=== PATIENT | male | born 1975 | race Caucasian/White ===

== ENCOUNTER 2021-04-23 13:47 | Emergency (ER) | payer BC, SELFPAY ==
--- NOTE | 2021-04-23 13:52 | ED.LOWEXIN ---
HPI - Extremity Injury (Lower) General Chief Complaint: Extremity Injury, Lower Stated Complaint: RIGHT KNEE PAIN Time Seen by Provider: 04/23/21 13:52 Source: patient and RN notes reviewed History of Present Illness HPI Narrative: Patient is a 45-year-old male who presents the urgent care with his significant other with complaints of right knee pain and swelling. Patient states that he was climbing up in a truck bed on Saturday getting ready to go camping and heard a pop in the right knee . Patient states that he is rested all weekend used ice and Aleve for the pain. Denies of hitting the knee. No other acute complaints. No acute distress noted. Patient aware of the plan of care. Some parts of this dictation were generated by voice recognition software and may contain typographical and/or grammatical inaccuracies. Related Data Allergies Allergy/AdvReac Type Severity Reaction Status Date / Time No Known Allergies Allergy Unverified 04/08/18 15:31 Review of Systems Review of Systems: CONSTITUTIONAL: Denies fever, chills, or sweats. EYES: Denies visual changes, redness, or discharge. ENT: Denies rhinorrhea, congestion, sore throat, or otalgia. CARDIOVASCULAR: Denies chest pain, palpitations, or edema. RESPIRATORY: Denies cough or dyspnea. GASTROINTESTINAL: Denies abdominal pain, nausea, vomiting, or diarrhea. GENITOURINARY: Denies dysuria or hematuria. SKIN: Denies rash or itching. MUSCULOSKELETAL: Reports of right knee pain and swelling NEUROLOGIC: Denies headache, numbness, or weakness. All other systems reviewed are negative, except as documented in HPI. PMFSH Comments At the time of my signature, I reviewed and agree with the nursing past medical, surgical, social, and family history. There is no relevant family history pertinent to the patient complaint. Exam Narrative: GENERAL: This is a well-nourished, well-developed patient, in no apparent distress. HEAD: normocephalic, atraumatic. EYES: PERRL. Sclera clear/white. Vision is grossly intact. EARS: External ears normal NOSE: External nose normal with no obvious nasal discharge, nares without redness, no rhinorrhea. THROAT: Mucous membranes moist NECK: Neck supple CARDIOVASCULAR: Regular rate and rhythm without murmurs, gallops, or rubs. RESPIRATORY: Clear to auscultation. Breath sounds equal bilaterally. No wheezes, rales, or rhonchi. SKIN: warm, intact with no suspicious lesions or rash, good texture and turgor. NEURO: awake, alert, and oriented to person, place and time. There were no obvious focal neurologic abnormalities. EXTREMITIES: Mild edema noted to the anterior medial aspect of the right knee with moderate tenderness. Anterior drawer test negative. Pain exacerbated with weightbearing or straightening/flexion of the right knee. No obvious deformity or fracture. Positive strong right pedal pulse capillary refill less than 2 seconds. Course Vital Signs Vital signs: Vital Signs Temperature 97.7 F 04/23/21 14:07 Pulse Rate 81 04/23/21 14:07 Respiratory Rate 16 04/23/21 14:07 Blood Pressure 106/80 04/23/21 14:07 Pulse Oximetry 99 04/23/21 14:07 Temperature 97.7 F 04/23/21 14:07 Pulse Rate 81 04/23/21 14:07 Respiratory Rate 16 04/23/21 14:07 Blood Pressure 106/80 04/23/21 14:07 Pulse Oximetry 99 04/23/21 14:07 Reviewed MDM - Extremity Injury (Lower) MDM Narrative Medical decision making narrative: Advised the patient to elevate and use ice/Tylenol/ibuprofen as needed for pain. Wear the Dante wrap as much as possible. Avoid any weightbearing activity or strenuous activity until tolerated as normal. Complete the steroid regimen as prescribed. Steroid will help with mild inflammation but is only a temporary fix if you do in fact have a ligament injury. Therefore follow-up with the referred orthopedic tomorrow for future appointment. Follow-up with your PCP within 2 to 5 days or for worsening symptoms or failure to improve.
[2021-04-23 14:07] VITALS: BP 106/80; PULSE 81; RESP 16; TEMP 36.5; O2SAT 99
== END 2021-04-23 14:14 | disposition home or self-care (01) ==
PROVIDERS: Emergency Provider Nurse Practitioner Family
DX: M25.561 Pain in right knee (principal)
CPT/HCPCS: 99213; G0463